=== PATIENT | female | born 1960 | race Caucasian/White ===

== ENCOUNTER 2021-07-21 16:11 | Emergency (ER) | payer MEDICAID, MEDICARE ==
[~2021-07-21] VITALS: Ht 165.1 cm; Wt 99.8 kg
[2021-07-21 16:22] VITALS: BP_SYST 152
--- NOTE | 2021-07-21 17:10 | NUR ---
Patient to ER bed 3 to gown for evaluation. Side rails up. Report given to ALEJANDRINA Whiting
--- NOTE | 2021-07-21 17:15 | NUR ---
ER at bedside examining patient.
--- NOTE | 2021-07-21 17:20 | NUR ---
# 20 gauge angiocath placed to LAC. Use of asceptic technique. Opsite placed over site. Blood return noted. Blood for lab drawn from site. Flushed with 10 cc of normal saline. No evidence of infiltration noted. Patient tolerated well.
--- NOTE | 2021-07-21 17:30 | NUR ---
Patient AAOx4 from home c/o abdominal pain to right lower quadrant that started at [id number]. per patient she was having diarrhea acouple days before. per patient she has been having nausea. denies taking any pain medication. denies any urinary changes. pt resting comfortably at this time.
--- NOTE | 2021-07-21 17:32 | NUR ---
patientt taken to CT scan via ambulatory with radiology staff.
[2021-07-21 17:51] LABS: BASOPHILS # (AUTO) 0.1 K/uL (0.0-0.2); BASOPHILS % (AUTO) 0.8 % (0.0-2.0); CALCIUM 8.3 mg/dL (8.4-11.0); CREATININE 0.7 mg/dL (0.55-1.30); EOSINOPHILS # (AUTO) 0.2 K/uL (0.0-0.4); EOSINOPHILS % (AUTO) 3.6 % (0.0-4.0); HEMATOCRIT 43.6 % (36-48); HEMOGLOBIN 14.7 g/dL (12.0-16.0); LYMPHOCYTES # (AUTO) 1.5 K/uL (1.0-5.5); LYMPHOCYTES % (AUTO) 22.7 % (20.5-51.5); MEAN CORPUSCULAR HEMOGLOBIN 29 pg (27-31); MEAN CORPUSCULAR HGB CONC 34 % (32-36); MEAN CORPUSCULAR VOLUME 87 fL (79.0-98.0); MONOCYTES # (AUTO) 0.3 K/uL (0.0-1.0); MONOCYTES % (AUTO) 4.9 % (1.7-9.3); NEUTROPHILS # (AUTO) 4.6 K/uL (1.8-7.7); PLATELET COUNT (AUTO) 260 K/uL (130-430); POTASSIUM 3.9 mmol/L (3.5-5.1); RED BLOOD CELL COUNT(AUTO) 5.04 MIL/uL (4.2-6.2); RED CELL DISTRIBUTION WIDTH 12.7 % (9.0-15.0); WHITE BLOOD COUNT (AUTO) 6.7 K/uL (4.8-10.8)
[2021-07-21 18:58] LABS: ALBUMIN 3.5 g/dL (3.4-4.8); TOTAL BILIRUBIN 0.5 mg/dL (0.0-1.0)
[2021-07-21 19:08] LABS: BILIRUBIN,URINE NEGATIVE (NEGATIVE); BLOOD, URINE NEGATIVE (NEGATIVE); COLOR,URINE YELLOW (YELLOW); GLUCOSE,URINE 3+ (NEGATIVE); KETONES,URINE NEGATIVE (NEGATIVE); LEUKOCYTE ESTERASE ,URINE NEGATIVE (NEGATIVE); NITRITE, URINE NEGATIVE (NEGATIVE); PROTEIN URINE NEGATIVE (NEGATIVE); UROBILINOGEN,URINE 0.2 (0.2-1.0)
[2021-07-21 19:09] LABS: CLARITY/URINE HAZY (CLEAR)
--- NOTE | 2021-07-21 19:14 | NUR ---
report given to ALEJANDRINA Vizcaino who will assume care.
[2021-07-21 19:21] LABS: BACTERIA,URINE MODERATE /HPF (None Seen); MUCUS,URINE 1+ /LPF (None Seen); WBC,URINE 0-3 /HPF (0-3)
[2021-07-21] MEDS ORDERED: POLY17PO44 PO (19:37)
[2021-07-21] MEDS ORDERED: SIME80TA15 PO (19:37)
--- NOTE | 2021-07-21 19:52 | NUR ---
Patient given written and verbal discharge instructions and verbalizes understanding. ER MD Holly discussed with patient the results and treatment provided. Patient in stable condition. ID arm band removed. IV catheter removed intact and dressing applied, no active bleeding. Rx of Simethicone and Polyethylene sent to pharmacy of choice. Patient educated on pain management and to follow up with PMD. Pain Scale 0/10. Opportunity for questions provided and answered. Medication side effect fact sheet provided.
[2021-07-21 19:53] VITALS: BP_SYST 147
== END 2021-07-21 19:53 | disposition home or self-care (01) ==
LOC: SED 16:11
DX: K59.00 Constipation, unspecified (principal); M47.817 Spondylosis without myelopathy or radiculopathy, lumbosacral region; E11.65 Type 2 diabetes mellitus with hyperglycemia; Z88.0 Allergy status to penicillin; Z88.6 Allergy status to analgesic agent
CPT/HCPCS: 36415; 76376; 80053; 81000; 83690; 85025; 87086; 99284